=== PATIENT | female | born 1955 | race Caucasian/White ===

== ENCOUNTER 2018-05-14 06:00 | Day surgery (SDC) | payer OTHER ==
[~2018-05-14 06:00] MED LIST: CALCIO; FISH OIL + D31 EACH; VITAMINA D
[2018-05-15] MEDS ORDERED: VITAMIN D1000 UNI1 (09:29)
[2018-05-15] MEDS ORDERED: CALCIUM ACETAT667 MG PO (09:30)
== END 2018-05-15 08:00 | disposition home or self-care (01) ==
LOC: O/R 06:00 → SURH 06:00 → CIR.AMB 06:00 → EDSTATUS 09:00 → SURH 09:00 → O/R 10:15 → SURH 12:15 → CIR.AMB 05-15 08:00
DX: C50.411 Malignant neoplasm of upper-outer quadrant of right female breast (principal); Z90.11 Acquired absence of right breast and nipple

== ENCOUNTER 2018-10-10 09:31 | Outpatient (CLI) | payer OTHER ==
[~2018-10-10 09:31] MED LIST changes: +CALCIUM ACETAT667 MG PO; +VITAMIN D1000 UNI1
== END 2018-10-10 09:49 | disposition home or self-care (01) ==
LOC: LAB 09:31 → RAD 09:31
DX: N39.0 Urinary tract infection, site not specified (principal); Z90.11 Acquired absence of right breast and nipple

== ENCOUNTER 2018-10-12 05:50 | Day surgery (SDC) | payer OTHER | END 2018-10-12 17:00 | disposition home or self-care (01) | LOC: CIR.AMB 05:50 | PROVIDERS: Plastic Surgery | PROC: 0H0T0JZ Alteration of Right Breast with Synthetic Substitute, Open Approach (ICD-10-PCS; 2018-10-12) | PROC: 0HQU0ZZ Repair Left Breast, Open Approach (ICD-10-PCS; 2018-10-12) | PROC: 0HPT0NZ Removal of Tissue Expander from Right Breast, Open Approach (ICD-10-PCS; principal; 2018-10-12 07:00) | PROC: 0HRT0JZ Replacement of Right Breast with Synthetic Substitute, Open Approach (ICD-10-PCS; 2018-10-12 07:00) | DX: N64.81 Ptosis of breast (principal); Z90.11 Acquired absence of right breast and nipple; N65.1 Disproportion of reconstructed breast | CPT/HCPCS: 19342; 19366; 11970; 19316; C1789 ==